=== PATIENT | male | born 1990 | race Caucasian/White ===

== ENCOUNTER 2022-01-13 00:30 | Emergency (ER) | payer BC, MEDICAID ==
[2022-01-13 01:10] VITALS: BP 127/84; PULSE 74
== END 2022-01-13 01:31 | disposition home or self-care (01) ==
LOC: VM.ED 00:30
DX: R60.0 Localized edema (principal)
CPT/HCPCS: 99283; 99284

== ENCOUNTER 2022-03-16 15:39 | Emergency (ER) | payer MEDICAID ==
[2022-03-16] MEDS ORDERED: Sodium Chloride 0.9% 10 ML Syringe FLUSH PRN (15:51)
[2022-03-16] MEDS ORDERED: LORazepam 2 MG/ML SDV IVPUSH ONE (16:01)
[2022-03-16] MEDS ORDERED: LORazepam 2 MG/ML SDV ONE (16:05)
[2022-03-16] MEDS ORDERED: Succinylcholine 200 MG/10 ML MDV ONE (16:06)
[2022-03-16] MEDS ORDERED: Sodium Bicarbonate 100 MEQ in Dextrose 5% in Water 1,000 ML IV ONE ×2 (16:22)
[2022-03-16] MEDS ORDERED: Sodium Bicarbonate 8.4% 50 MEQ/50 ML Syringe IVPUSH ONE (16:24)
[2022-03-16 16:28] LABS: PTT,PARTIAL THROMBOPLSTIN TIME 36.6 SEC (20.5-30.9)
[2022-03-16 16:40] LABS: ACETAMINOPHEN 38 ug/ml (10-30); CHLORIDE,CL 101 mmol/L (98-107); SODIUM,NA 136 mmol/L (136-145)
[2022-03-16 16:44] LABS: ANION GAP 10.6 mmol/L (5-15)
[2022-03-16 16:45] LABS: BARBITURATE SCREEN,URINE NEGATIVE (NEGATIVE); BENZODIAZEPINES SCREEN,URINE NEGATIVE (NEGATIVE); BUPRENORPHINE SCREEN,URINE NEGATIVE (NEGATIVE); METHAMPHETAMINE SCREEN, URINE NEGATIVE (NEGATIVE); THC SCREEN,URINE 50 NG/ML NEGATIVE (NEGATIVE)
[2022-03-16] MEDS ORDERED: Midazolam 1 MG/ML 2 ML SDV IVPUSH ONE (16:56)
[2022-03-16] MEDS ORDERED: Midazolam 1 MG/ML 2 ML SDV ONE ×2 (16:58→17:20)
[2022-03-16 17:08] LABS: PCO2 ARTERIAL,POC 49 mmHg (35-48)
[2022-03-16] MEDS: Rocuronium 50 MG/5 ML Vial ONE ×2 (17:10→17:33)
[2022-03-16] MEDS ORDERED: Midazolam 1 MG/ML 2 ML SDV IVPUSH PRN (17:18)
[2022-03-16] MEDS ORDERED: Rocuronium 50 MG/5 ML Vial ONE (17:27)
[2022-03-16 18:57] VITALS: BP 132/71; PULSE 100
== END 2022-03-16 17:33 | disposition short-term general hospital (02) ==
LOC: VM.ED 15:39
DX: T43.011A Poisoning by tricyclic antidepressants, accidental (unintentional), initial encounter (principal)
CPT/HCPCS: 36415; 36600; 51702; 71045; 80053; 80143; 80179; 80305-QW; 80307; 81003; 82803; 83735; 84100; 84443; 84484; 85025; 85610; 85730; 93005; 94002; 96365; 96375; 96376; 99284; 99285-25; J0132; J0330; J2060; J2250; J7060

== ENCOUNTER 2023-05-28 10:43 | Emergency (ER) | payer MEDICAID ==
[2023-05-28 11:16] LABS: BASOPHILS PERCENT AUTO 0.4 % (0.2-1.2); EOSINOPHILS ABSOLUTE AUTO 0.4 x10^3/uL (0.0-0.5); HEMOGLOBIN 15.9 g/dL (14.0-18.0); IMMATURE GRAN ABSOLUTE AUTO 0.01 x10^3/uL (0.00-0.07); LYMPHOCYTES ABSOLUTE AUTO 1.3 x10^3/uL (1.0-4.8); LYMPHOCYTES PERCENT AUTO 21.9 % (25.0-50.0); MEAN CORPUSCULAR HEMOGLOBIN 30.4 pg (26.0-32.0); MEAN CORPUSCULAR HGB CONC 33.8 g/dL (32.0-36.0); MEAN CORPUSCULAR VOLUME 89.9 fL (78.0-93.0); MONOCYTES ABSOLUTE AUTO 0.6 x10^3/uL (0.0-0.8); MONOCYTES PERCENT AUTO 9.6 % (2.0-11.0); NEUTROPHILS ABSOLUTE AUTO 3.5 x10^3/uL (1.8-7.7); NEUTROPHILS PERCENT AUTO 60.9 % (50.0-80.0); PLATELET COUNT,PLT 333 x10^3/uL (130-400); RED BLOOD CELL COUNT 5.23 x10^6/uL (4.5-6.0); WHITE BLOOD CELL COUNT,WBC 5.7 x10^3/uL (4.0-10.0)
[2023-05-28 11:33] VITALS: BP 139/90; PULSE 80
[2023-05-28 11:43] LABS: ALANINE AMINOTRANSFERASE,ALT 64 U/L (16-63); ALBUMIN 3.8 g/dL (3.4-5.0); ALKALINE PHOSPHATASE 107 U/L (46-116); ASPARTATE AMNIOTRANSFERASE,AST 27 U/L (15-37); BILIRUBIN TOTAL 0.3 mg/dL (0.2-1.0); BLOOD UREA NITROGEN,BUN 12 mg/dL (7-18); C-REACTIVE PROTEIN 1.02 mg/dL (<=0.30); CARBON DIOXIDE,CO2 30 mmol/L (21-32); CHLORIDE,CL 103 mmol/L (98-107); CREATININE 1.1 mg/dL (0.70-1.30); GLUCOSE RANDOM 115 mg/dL (70-99); POTASSIUM,K 4.1 mmol/L (3.5-5.1); SODIUM,NA 142 mmol/L (136-145)
[2023-05-28 11:45] LABS: ANION GAP 13.1 mmol/L (5-15); ESTIMATED GFR 90 mL/min (>=60)
[2023-05-28 11:49] LABS: STREP A BY PCR NOT DETECTED (NOT DETECT)
[2023-05-28 11:59] LABS: CORONAVIRUS COVID-19 NAA NEGATIVE (NEGATIVE)
[2023-05-28 12:00] LABS: INFLUENZA A NAA NEGATIVE (NEGATIVE); INFLUENZA B NAA NEGATIVE (NEGATIVE)
== END 2023-05-28 12:18 | disposition home or self-care (01) ==
LOC: VM.ED 10:43
DX: J20.9 Acute bronchitis, unspecified (principal); Z72.0 Tobacco use; Z20.822 Contact with and (suspected) exposure to COVID-19
CPT/HCPCS: 0240U; 36415; 71046; 80053; 85025; 86140; 87651-QW; 99284